=== PATIENT | male | born 1970 | race Caucasian/White ===

== ENCOUNTER 2017-10-30 07:27 | Emergency (ER) | payer MEDICARE ==
[2017-10-30] MEDS ORDERED: Ondansetron ODT 4 MG TAB ONE (08:16)
[2017-10-30 08:38] LABS: #Eosinphils 0.1 thou/uL (0.0-0.7); #Lymphocytes 0.3 thou/uL (1.20-3.40); #Monocytes 0.5 thou/uL (0.11-0.59); #Neutrophils 3.8 thou/uL (1.40-6.50); %Basophils 0.4 % (0.0-1.0); %Eosinophils 1.9 % (0.0-10.0); %Lymphocytes 6.1 % (21.0-51.0); %Neutrophils 80.6 % (42.0-75.0); Hemoglobin 13.8 g/dL (14.0-18.0); Mean Corpuscular HGB CONC 34.8 g/dL (32.0-36.0); Mean Corpuscular Hemoglobin 30.1 pg (27.0-31.0); Mean Corpuscular Volume 86.4 fl (80.0-94.0); Mean Platelet Volume 7.4 fL (7.4-10.4); Platelet Count 214 thou/uL (130-400); RBC Distribution Width 13.7 % (11.5-14.5); Red Blood Cell (RBC) Count 4.59 mill/uL (4.70-6.10); White Blood Cell (WBC) Count 4.8 thou/uL (4.8-10.8)
--- NOTE | 2017-10-30 08:52 | CT ---
CT BRAIN WITHOUT CONTRAST: Indication: History of seizure like activity and history of MS. FINDINGS: There are areas of hypodense pericallosal white matter foci consistent with patient's history of mult iple sclerosis. No acute hemorrhage or hydrocephalus is present. There is prominent atrophy of the ce rebellum, out of proportion to the cerebral hemispheres and for age. Mastoid air cells and paranasal sinuses are clear. IMPRESSION: 1. No acute intracranial abnormality. 2. Periventricular hypodensities may reflect sequellae of patient's history of multiple sclerosis. Ac tive demyelinating disease cannot be entirely excluded on the current CT examination. Follow up MRI o f the brain with and without contrast recommended. 3. Asymmetric atrophy of the cerebellum. This could be further assessed with the patient's recommende d MR examination of the brain. POS: MARTY
[2017-10-30 08:59] LABS: ALT (SGPT) 18 U/L (8-55); AST (SGOT) 15 U/L (5-34); Albumin 4.1 g/dL (3.5-5.0); Alkaline Phosphatase 83 U/L (40-150); Anion Gap 12 mmol/L (10-20); BUN (Urea Nitrogen) 15 mg/dL (8.9-20.6); Bilirubin, Total 1.1 mg/dL (0.2-1.2); Calc. Creatinine Clearance 0 mL/min (70-130); Calcium 8.8 mg/dL (7.8-10.44); Carbon Dioxide 25 mmol/L (22-29); Chloride 105 mmol/L (98-107); Estimated GFR-MDRD 77; Globulin 2.4 g/dL (2.4-3.5); Glucose 121 mg/dL (70-105); Protein, Total 6.5 g/dL (6.0-8.3); Sodium 138 mmol/L (136-145)
[2017-10-30] MEDS ORDERED: levETIRAcetam 500 MG TAB PO SCH (12:00)
== END 2017-10-30 12:15 | disposition home or self-care (01) ==
LOC: ERS 07:27
DX: R56.9 Unspecified convulsions (principal); G35 Multiple sclerosis; Z79.899 Other long term (current) drug therapy
CPT/HCPCS: 36415; 70450; 80053; 84146; 85025; 93005; Q0162